=== PATIENT | female | born 1995 | race African-American/Black ===

== ENCOUNTER 2018-01-28 16:55 | Emergency (ER) | payer OTHER ==
[~2018-01-28] VITALS: Ht 162.6 cm; Wt 99.3 kg
[~2018-01-28 16:55] MED LIST: BUTO1CRE PV; METR1TAB76 PO; PREN1TAB53
--- NOTE | 2018-01-28 17:56 | PD ---
HPI Chief Complaint contractile pain Date Seen: Jan 28, 2018 Time Seen: 17:15 (Fransisco Babb MD R1) Travel History International Travel<30 Days: No Contact w/Intl Traveler<30Days: No Known Affected Area: No (Fransisco Babb MD R1) History of Present Illness HPI Ms Pk is a 22YO at 37/3 weeks who is followed by [facility] p/w contractile pain in her lower abdomen since early this afternoon. Pt feels like there are contractions approx every 15 minutes. There has been no leakage of fluid or bloody vaginal discharge. Pt was seen on Wednesday in d ketones in her urine. Pt is noted to have had positive screen for Trichomonas and felix on 09/27/17 treated and test of cure negative. STI testing at same time was negative for GC/ Chlamydia and BV. Pt also endorses GAUTAM x2 days, heartburn and some nausea. Denies V/D, constipation, fever, chills, CP, SOB, dizziness. Pt does indicate she has not had much PO fluid today. Weeks Gestation: 37 Para: 2 : 3 Miscarriage: 0 : 0 (Fransisco Babb MD R1) History Past Medical History Medical History: Denies Significant Hx (Fransisco Babb MD R1) Past Surgical History Surgical History: No Previous Surgery (Fransisco Babb MD R1) Family History Family History: Negative (Fransisco Babb MD R1) Social History Alcohol Use: No Tobacco Use: No Substance Abuse: No (Fransisco Babb MD R1) Allergies-Medications (Allergen,Severity, Reaction): Coded Allergies: amoxicillin (Verified Allergy, Unknown, rash, 09/27/17) Comments mild rash reported with amoxicillin (Fransisco Babb MD R1) Home Meds Reported Medications Vit-Ferrous Fumara ( Vitamin/Iron 28-0.8 mg) 28 Mg Iron-800 Mcg Tab 08/23/17 Discontinued Scripts Metronidazole (Metronidazole) 500 Mg Tab, 500 MG PO BID for Infection for 7 Days , #14 TAB 0 Refills Prov:Virginia Collado CNM [employer] 09/30/17 Butoconazole Nitrate (One Dose (Gynazole-1) 2 % Cre, 1 APPLIC PV ONCE, #1 APPL 0 Refills Prov:Tricia Mcclain [employer] 09/27/17 Narrative Medication Pt reports she finished both the Flagyl and Butoconazole treatment in September 2017 (Fransisco Babb MD R1) Review of Systems General / Constitutional: No: Fever, Chills Eyes: No: Visual changes HENT: Headaches (x2 days), No: Lightheadedness Cardiovascular: No: Chest Pain or Discomfort, Palpitations Respiratory: No: Cough, Short of Breath Gastrointestinal: Nausea, Abdominal Pain (lower), Indigestion (heartburn), No: Vomiting, Diarrhea, Constipation Genitourinary: Pelvic Pain, No: Dysuria, Hematuria, Discharge, Vaginal Bleeding Musculoskeletal: Pain (lower abdominal at times radiating to her back), No: Weakness, Cramping Skin: No Rash Neurologic: No: Weakness, Dizziness, Syncope (Fransisco Babb MD R1) Physical Exam BP 134/54 HR 94 Narrative GENERAL: Well-nourished, well-developed patient in NAD. SKIN: Warm and dry. No lesions or rashes. HEAD: Normocephalic and atraumatic. EYES: No scleral icterus. No injection or drainage. ENT: No nasal drainage noted. Mucous membranes pink. Airway patent. NECK: Supple, trachea midline. No JVD. CARDIOVASCULAR: Regular rate and rhythm without murmurs, gallops, or rubs. RESPIRATORY: Breath sounds equal bilaterally. No accessory muscle use. No increased WOB. ABDOMEN/GI: Abdomen soft, non-tender, bowel sounds present, no rebound, no guarding Gravid to 37 weeks size GENITOURINARY: External Genitalia: intact and normal in appearance Cervix: closed Dilatation: - Effacement: 50% Station: - Presentation: - Membranes: intact Uterine Contractions: absent FHT's: Category: 1 Baseline: 145-155 Reactive: yes Variability: moderate Decels: none EXTREMITIES: No cyanosis or edema. BACK: Nontender without obvious deformity. No CVA tenderness. NEUROLOGICAL: Awake and alert. Motor and sensory grossly within normal limits. Five out of 5 muscle strength in all muscle groups. Normal speech. (Fransisco Babb MD R1) Data Data Vital Signs Reviewed: Yes Orders Orders Urinalysis - C+S If Indicated (01/28/18 17:39) (Fransisco Babb MD R1) MDM Medical Record Reviewed: Yes Narrative Course / MDM 22YO at 37/3 weeks gestation followed by CFW p/w pelvic pain in the lower abdomen this afternoon. Cervix is closed, 50% and high. Cat 1 tracing with FHT baseline 150, moderate, reactive, no decels. DDx: dehydration vs round ligament pain vs UTI 1. Mehta IUP -Monitor and toco; reassuring FHTs -Encourage hydration -UA negative for infection; however, specific gravity 1.035 indicates dehydration -Pt encouraged to be more aggressive with hydration Pt seen with Dr Rosalind Rao and dw Dr Celeste (Fransisco Babb MD R1) Attending Attestation Patient seen and evaluated with resident under direct supervision, agree with assessment and plan. (Domingo Celeste MD) Diagnosis Diagnosis: Primary Impression: Antepartum dehydration Additional Impression: Round ligament pain Disposition: 01 DISCHARGE HOME Condition: Stable Fransisco Babb MD R1 Jan 28, 2018 17:56 Domingo Celeste MD Jan 28, 2018 21:42
[2018-01-28 18:08] LABS: BACTERIA, URINE OCC /hpf; BILIRUBIN, URINE NEG (NEG); BLOOD, URINE TRACE (NEG); CALCIUM OXALATE CRYSTALS,URINE MOD /hpf; GLUCOSE,URINE TRACE mg/dL (NEG); KETONE, URINE TRACE mg/dL (NEG); MUCUS URINE MANY /lpf (OCC); NITRITE,URINE NEG (NEG); SQUAMOUS EPITHELIAL CELL URINE 5 /hpf (0-5); URINE COLOR YELLOW (YELLW/STRAW); URINE LEUKOCYTE ESTERASE SMALL (NEG)
== END 2018-01-28 18:44 | disposition home or self-care (01) ==
LOC: HOBED 16:55
DX: O26.893 Other specified pregnancy related conditions, third trimester (principal); E86.0 Dehydration; R10.2 Pelvic and perineal pain; Z3A.37 37 weeks gestation of pregnancy; Z79.899 Other long term (current) drug therapy; Z88.0 Allergy status to penicillin
CPT/HCPCS: 59025; 81001

== ENCOUNTER 2018-02-04 21:55 | Emergency (ER) | payer OTHER ==
[~2018-02-04] VITALS: Ht 162.6 cm; Wt 101.2 kg
[~2018-02-04 21:55] MED LIST changes: -BUTO1CRE PV; -METR1TAB76 PO
--- NOTE | 2018-02-04 23:22 | PD ---
HPI Chief Complaint Contractions Date Seen: Feb 04, 2018 Time Seen: 23:15 Travel History International Travel<30 Days: No Contact w/Intl Traveler<30Days: No Known Affected Area: No History of Present Illness HPI Patient is 22-year-old black female at 38 weeks who [facility] and presents clinic contractions. Denies bleeding or leakage of fluid, heart rate tracing is reactive with rare contractions seen Weeks Gestation: 38 Para: 2 : 3 Last Menstrual Period: Feb 04, 2018 History Obstetric History Obstetric History 2 vaginal deliveries Social History Alcohol Use: No Tobacco Use: No Substance Abuse: No Allergies-Medications (Allergen,Severity, Reaction): Coded Allergies: amoxicillin (Verified Allergy, Unknown, rash, 02/04/18) Home Meds Reported Medications [None] No Conflict Check 02/04/18 Discontinued Scripts Metronidazole (Metronidazole) 500 Mg Tab, 500 MG PO BID for Infection for 7 Days , #14 TAB 0 Refills Prov:Virginia Collado CNM [facility] 09/30/17 Butoconazole Nitrate (One Dose (Gynazole-1) 2 % Cre, 1 APPLIC PV ONCE, #1 APPL 0 Refills Prov:Tricia Mcclain [facility] 09/27/17 Review of Systems General / Constitutional: No: Fever, Weight Gain, Chills, Other Eyes: No: Diploplia, Blurred Vision, Visual changes, Pain, Photophobia HENT: No: Headaches, Vertigo, Lightheadedness Cardiovascular: No: Irregular Rhythm, Chest Pain or Discomfort, Palpitations, Tachycardia, Syncope, Varicosities, Edema, Cyanosis Respiratory: No: Cough, Short of Breath, Other Gastrointestinal: Abdominal Pain, No: Nausea, Vomiting, Diarrhea Genitourinary: No: Decreased Urinary Output, Oliguria Musculoskeletal: No: Limited ROM, Weakness, Cramping, Edema, Pain Skin: No Rash, No Itching, No Dryness, No Lumps, No Change in Pigmentation, No Change in Nails, No Alopecia, No Lesions Neurologic: No: Weakness, Dizziness, Syncope, Focal Abnormalities, Coordination Problem, Headache, Slurred Speech, Seizures Psychiatric: No: Depression, Suicidal Ideations, Homicidal Ideation Endocrine: No: Heat Intolerance, Cold Intolerance, Polydipsia, Polyuria, Other Physical Exam Narrative GENERAL: Well-nourished, well-developed patient. SKIN: Warm and dry. HEAD: Normocephalic and atraumatic. EYES: No scleral icterus. No injection or drainage. ENT: No nasal drainage noted. Mucous membranes pink. Airway patent. NECK: Supple, trachea midline. No JVD. CARDIOVASCULAR: Regular rate and rhythm without murmurs, gallops, or rubs. RESPIRATORY: Breath sounds equal bilaterally. No accessory muscle use. BREASTS: Bilateral exam showed no masses , no retractions, no nipple discharge. ABDOMEN/GI: Abdomen soft, non-tender, bowel sounds present, no rebound, no guarding Gravid to [-38] weeks size Fundal Height: [-38] GENITOURINARY: External Genitalia: intact and normal in appearance BUS glands: [-] Cervix: [-post] Dilatation: [1-] Effacement: [50-] Station: [-3] Presentation: [vtx-] Membranes: [intact ] Uterine Contractions: [occasional-] FHT's: Category: [1-] Baseline: [133-] Reactive: [R-] Variability: [mod-] Decels: [none-] EXTREMITIES: No cyanosis or edema. BACK: Nontender without obvious deformity. No CVA tenderness. NEUROLOGICAL: Awake and alert. Motor and sensory grossly within normal limits. Five out of 5 muscle strength in all muscle groups. Normal speech. MDM Interpretation(s) Patient is 22-year-old white female at 38 weeks presents complaining of contractions, only occasional contractions seen on the monitor, cervix is 1/50/- 3, heart rate tracing is reactive Plan Plan to discharge home to bedrest, heating bag, Tylenol, increase p.o. fluids, return for increasing pain or regularity of contractions or she is leakage or bleeding Diagnosis Diagnosis: Primary Impression: False labor after 37 weeks of gestation without delivery Disposition: 01 DISCHARGE HOME Condition: Stable Patient Instructions: General Instructions Additional Instructions: RETURN TO ER FOR REGULAR CONTRACTIONS, BLEEDING, LEAKING OF FLUIDS, DECREASED MOVEMENT Departure Forms: Tests/Procedures Greg Cheung II, MD Feb 04, 2018 23:22
== END 2018-02-04 23:25 | disposition home or self-care (01) ==
LOC: HOBED 21:55
DX: O47.1 False labor at or after 37 completed weeks of gestation (principal); Z3A.38 38 weeks gestation of pregnancy
CPT/HCPCS: 59025

== ENCOUNTER 2018-02-16 10:20 | Inpatient (IN) | payer OTHER ==
[~2018-02-16] VITALS: Ht 162.6 cm; Wt 101.6 kg
--- NOTE | 2018-02-16 11:07 | PD ---
HPI Date Seen: Feb 16, 2018 Travel History International Travel<30 Days: No Contact w/Intl Traveler<30Days: No Known Affected Area: No History of Present Illness HPI The patient is a 22 year old at 40/1 weeks gestation [facility] by [facility] presents with possible ROM. She states around 07:00 this morning she noticed clear drainage of fluid. She was later on her toilet and noted more drainage at that time appearing cloudy. She denies contractions or any pain currently. Reports + movements. Denies vaginal bleeding. Patient is noted to have had positive screen for Trichomonas and felix on 09/27/17 treated and test of cure negative. STI testing at that same time was negative for GC/Chlamydia and BV. Para: 2 : 3 History Past Medical History Medical History: Denies Significant Hx Obstetric History Obstetric History Two prior vaginal deliveries Past Surgical History Surgical History: No Previous Surgery Family History Family History: Negative Social History Alcohol Use: No Tobacco Use: No Substance Abuse: No Allergies-Medications (Allergen,Severity, Reaction): Coded Allergies: amoxicillin (Verified Allergy, Unknown, rash, 02/04/18) Home Meds No Active Prescriptions or Reported Meds Review of Systems Except as stated in HPI: all other systems reviewed are Neg Physical Exam Narrative GENERAL: Well-nourished, well-developed patient. SKIN: Warm and dry. HEAD: Normocephalic and atraumatic. EYES: No scleral icterus. No injection or drainage. ENT: No nasal drainage noted. Mucous membranes pink. Airway patent. NECK: Supple, trachea midline. No JVD. CARDIOVASCULAR: Regular rate and rhythm without murmurs, gallops, or rubs. RESPIRATORY: Breath sounds equal bilaterally. No accessory muscle use. ABDOMEN/GI: Abdomen soft, non-tender, bowel sounds present, no rebound, no guarding Gravid to 40 weeks size GENITOURINARY: External Genitalia: intact and normal in appearance Cervix: posterior Dilatation: 1cm Effacement: thick Station: -3 Presentation: [-] Membranes: ruptured Uterine Contractions: none FHT's: Category: I Baseline: 130s Reactive: +accels Variability: moderate Decels: none noted EXTREMITIES: No cyanosis or edema. BACK: Nontender without obvious deformity. NEUROLOGICAL: Awake and alert. Motor and sensory grossly within normal limits. Normal speech. Data Data Vital Signs Reviewed: Yes Orders Orders Vital Signs (Adult) .ON ADMISSION (02/16/18 11:04) ^ Labor Status (02/16/18 11:04) ^ Non Stress Test (02/16/18 11:04) Group B Strep: Negative MDM Medical Record Reviewed: Yes Plan 22 year old at 40/1 weeks gestation [facility] presents s/ p SROM and being admitted to L&D. 1. IUP - s/p SROM, amnisure positive - Cervix: 1cm, thick, -3 station - Category I tracing - GBS negative - Will consider cervidil for cervical ripening - Continuous EFM dw Dr. Yi Scripts No Active Prescriptions or Reported Meds Arturo Mays MD R2 Feb 16, 2018 11:07
[2018-02-16 11:11] VITALS: BP 113/61; PULSE 98
[2018-02-16] MEDS ORDERED: LACTATED RINGER'S 1000 ML INJ 1,000 ML IV PRN (11:22)
[2018-02-16] MEDS ORDERED: LACTATED RINGER'S 1000 ML INJ 1,000 ML IV SCH (11:22)
[2018-02-16] MEDS ORDERED: LIDOCAINE HCL 1% 50 ML VIAL I-DERMAL PRN (11:30)
[2018-02-16] MEDS ORDERED: SODIUM CHLORID 0.9% 500 ML INJ 500 ML IV PRN (11:30)
[2018-02-16] MEDS ORDERED: MINERAL OIL 10 ML VIAL TOPICAL PRN (11:30)
[2018-02-16] MEDS ORDERED: OXYTOCIN 30 UNITS-500ML PREMIX 500 ML IV ONE (11:30)
[2018-02-16] MEDS ORDERED: CITRIC ACID-SODIUM CITRATE LIQ 30 ML UDC PO SCH (11:30)
[2018-02-16] MEDS ORDERED: LIDOCAINE HCL 1% 50 ML VIAL INFIL PRN (11:30)
[2018-02-16] MEDS ORDERED: SODIUM CHLOR 0.9% 1000 ML INJ 1,000 ML IV PRN (11:42)
[2018-02-16] MEDS ORDERED: no current meds (12:45)
[2018-02-16 13:28] LABS: AUTOMATED NEUTROPHIL # 5.7 TH/MM3 (1.8-7.7); BASOPHIL % 0.5 % (0.0-2.0); EOSINOPHIL % 0.5 % (0.0-4.0); HEMATOCRIT 31.6 % (35.0-46.0); HEMOGLOBIN 10.1 GM/DL (11.6-15.3); LYMPH % 17.9 % (9.0-44.0); LYMPHOCYTE # 1.4 TH/MM3 (1.0-4.8); MEAN CORPUSCULAR HEMOGLOBIN 20.8 PG (27.0-34.0); MEAN PLATELET VOLUME 8.6 FL (7.0-11.0); MONO % 7.1 % (0.0-8.0); MONOCYTE # 0.5 TH/MM3 (0-0.9); PLATELET COUNT 113 TH/MM3 (150-450); RED BLOOD COUNT 4.86 MIL/MM3 (4.00-5.30); RED CELL DISTRIBUTION WIDTH 18.9 % (11.6-17.2); WHITE BLOOD COUNT 7.7 TH/MM3 (4.0-11.0)
[2018-02-16 13:33] LABS: BACTERIA, URINE RARE /hpf; BILIRUBIN, URINE NEG (NEG); BLOOD, URINE SMALL (NEG); GLUCOSE,URINE NEG (NEG); KETONE, URINE NEG (NEG); MUCUS URINE FEW /lpf (OCC); NITRITE,URINE NEG (NEG); SQUAMOUS EPITHELIAL CELL URINE 4 /hpf (0-5); URINE COLOR LIGHT-YELLOW (YELLW/STRAW); URINE LEUKOCYTE ESTERASE MOD (NEG)
[2018-02-16 15:02] VITALS: RESP 16; TEMP 98
[2018-02-16 19:16] VITALS: BP 123/73; PULSE 87
[2018-02-16 19:17] VITALS: RESP 17; TEMP 98.3
[2018-02-16] MEDS ORDERED: SODIUM CHLOR 0.9% 1000 ML INJ 1,000 ML OTHER PRN (19:53)
[2018-02-16] MEDS ORDERED: MISOPROSTOL 25 MCG TAB VAGINAL ONE (20:00)
--- NOTE | 2018-02-16 20:49 | HHI.PR ---
Subjective Remarks [facility] Patient was previously seen by me and risks of , risks/indications for C/S were discussed. Patient without any progress since admission, discussed risks/ benefits/alternatives to cytotec. Cytotec 25 mcg placed. FHR reassuring. GBS negative. Objective Vital Signs Date Time Temp Pulse Resp B/P (MAP) Pulse Ox O2 Delivery O2 Flow Rate FiO2 02/16/18 19:17 98.3 17 02/16/18 19:16 87 123/73 (90) 02/16/18 15:02 98.0 16 02/16/18 11:11 98 113/61 (78) Result Diagram: 02/16/18 1215 Tricia Yi MD Feb 16, 2018 20:49
[2018-02-16] MEDS ORDERED: ZOLPIDEM TARTRATE 5 MG TAB PO PRN (22:45)
[2018-02-16 23:56] VITALS: TEMP 98.1
[2018-02-17] VITALS (14 sets, daily range): BP systolic 95–128; BP diastolic 52–78; PULSE 74–96; RESP 17–18; TEMP 98–98.9; O2SAT 98
[2018-02-17] MEDS ORDERED: MISOPROSTOL 25 MCG TAB VAGINAL PRN
[2018-02-17] MEDS ORDERED: fentaNYL 2MCG-BUPIV 0.125% INJ 100 ML ONE (05:28)
[2018-02-17] MEDS ORDERED: ePHEDrine/NS 25 MG/5 ML SYRINGE ONE (05:29)
[2018-02-17] MEDS ORDERED: OXYTOCIN 10 UNIT/ML AMP ONE (05:42)
[2018-02-17] MEDS ORDERED: OXYTOCIN 30 UNITS-500ML PREMIX 500 ML ONE (06:02)
--- NOTE | 2018-02-17 06:03 | PD.OB.DELI ---
Anesthesia: None Episiotomy: None Vaginal Delivery: Normal Presentation: Occiput anterior Nuchal Cord: None Delayed cord clamping (45 sec): Yes Infant: Male Delivery date: Feb 17, 2018 Delivery time: 05:40 One Minute : 8 Five Minute : 9 Weight: 8#7oz. Placenta: Manual removal Laceration: No lacerations Repair: Chromic running Estimated blood loss: 250 Tricia Yi MD Feb 17, 2018 06:03
--- NOTE | 2018-02-17 06:03 | HHI.PR ---
Subjective Remarks [facility] delivery note The patient rapidly progressed from 5 cm dilated to complete/complete/+2 and commenced spontaneous maternal expulsive efforts with reassuring heart tones throughout. THe patient rapidly expelled the head followed by spontaneous and atraumatic delivery of anterior shoulders and remainder of . The was vigorous at delivery and placed on the maternal abdomen. The cord was doubly clamped and cut. Cord blood was obtained for the nursery and the he cervix starting to close. The placenta appeared intact. Apgars 8/9. Weight 8#7oz. EBL 250cc. Mother and are both doing well. Objective Vital Signs Date Time Temp Pulse Resp B/P (MAP) Pulse Ox O2 Delivery O2 Flow Rate FiO2 02/17/18 05:51 90 117/65 (82) 02/17/18 02:11 74 115/53 (73) 02/17/18 01:53 98.0 02/16/18 23:56 98.1 02/16/18 19:17 98.3 17 02/16/18 19:16 87 123/73 (90) 02/16/18 15:02 98.0 16 02/16/18 11:11 98 113/61 (78) Result Diagram: 02/16/18 1215 Tricia Yi MD Feb 17, 2018 06:03
[2018-02-17] MEDS ORDERED: DOCUSATE SODIUM 50 MG/SENNA 8.6 MG TAB PO PRN (08:45)
[2018-02-17] MEDS ORDERED: ONDANSETRON ODT 4 MG TAB PO PRN (08:45)
[2018-02-17] MEDS ORDERED: SODIUM CHLORIDE 0.9% FLUSH 10 ML FLUSH IV FLUSH PRN (08:45)
[2018-02-17] MEDS ORDERED: OXYTOCIN 30 UNITS-500ML PREMIX 500 ML IV SCH (08:45)
[2018-02-17] MEDS ORDERED: ZOLPIDEM TARTRATE 5 MG TAB PO PRN (08:45)
[2018-02-17] MEDS ORDERED: WITCH HAZEL 50%/GLYCERIN 12.5% 40 PAD JAR TOPICAL PRN (08:45)
[2018-02-17] MEDS ORDERED: ALUMINUM/MAGNESIUM/SIMETH 30 ML CUP PO PRN (08:45)
[2018-02-17] MEDS ORDERED: BENZOCAINE 20% TOPICAL SPRAY 60 ML CAN TOPICAL PRN (08:45)
[2018-02-17] MEDS ORDERED: oxyCODONE/ACETAMINOPHEN 5 MG/325 MG TAB PO PRN ×2 (08:45)
[2018-02-17] MEDS ORDERED: SODIUM CHLORIDE 0.9% FLUSH 10 ML FLUSH IV FLUSH SCH (09:00)
[2018-02-17] MEDS: IBUPROFEN 800 MG TAB PO PRN ×2 (11:57→20:31)
[2018-02-17] MEDS ORDERED: MEASLES, MUMPS, RUBELLA VACCINE 0.5 ML VIAL SQ ONE (16:00)
[2018-02-17] MEDS ORDERED: DIPHTH/TETANUS/ACEL PERTUSSIS (BOOSTER) 0.5 ML VIAL/PFS IM ONE (16:00)
[2018-02-18 08:00] VITALS: BP 121/74; PULSE 65; RESP 20; TEMP 97.9; O2SAT 99
--- NOTE | 2018-02-18 08:35 | HHI.OB ---
Subjective Post Day: 1 Remarks Patient seen and examined this morning. AFVSS overnight. day #1. Patient states her pain is well controlled. Decreased lochia. Denies dysuria. No breast tenderness. She is feeding the baby via breast without reported issues. Appetite good. No nausea or vomiting. Ambulating well without issues. Denies fevers, calf pain, shortness of breath, or cough. She otherwise has no other complaints or concerns this morning. Objective Vitals/I&O Vital Signs Date Time Temp Pulse Resp B/P (MAP) Pulse Ox O2 Delivery O2 Flow Rate FiO2 02/18/18 08:00 97.9 65 20 121/74 (90) 99 02/17/18 20:00 98.1 79 18 111/67 (82) 98 Objective Remarks GENERAL: Well-nourished, well-developed patient. CARDIOVASCULAR: Regular rate and rhythm without murmurs, gallops, or rubs. RESPIRATORY: Breath sounds equal bilaterally. No accessory muscle use. ABDOMEN/GI: Abdomen soft, non-tender. Fundus: Firm, non-tender at umbilicus. GENITOURINARY: Light to moderate bleeding. EXTREMITIES: No cyanosis or edema, non-tender, without signs of DVT. Medications and IVs Current Medications Medications (Trade) Dose Ordered Sig/Kvng Route Start Time Stop Time Status Last Admin (Ambien) 5 mg HS PRN PO 02/16/18 22:45 02/16/18 22:34 (NS Flush) 2 ml BID IV FLUSH 02/17/18 09:00 (NS Flush) 2 ml UNSCH PRN IV FLUSH 02/17/18 08:45 (Tylenol) 650 mg Q4H PRN PO 02/17/18 08:45 (Motrin) 800 mg Q8H PRN PO 02/17/18 08:45 02/17/18 20:31 (Percocet 5-325 Mg) 1 tab Q4H PRN PO 02/17/18 08:45 (Percocet 5-325 Mg) 2 tab Q4H PRN PO 02/17/18 08:45 (Americaine 20% Top Spr) 1 spray Q4H PRN TOPICAL 02/17/18 08:45 02/17/18 20:31 (Tucks Pads) 1 applic QID PRN TOPICAL 02/17/18 08:45 02/17/18 20:31 (Fina-Colace) 2 tab Q12H PRN PO 02/17/18 08:45 (Ambien) 5 mg HS PRN PO 02/17/18 08:45 (Mag-Al Plus Susp Liq) 15 ml Q8H PRN PO 02/17/18 08:45 (Zofran Odt) 4 mg Q6H PRN PO 02/17/18 08:45 Assessment/Plan Problem List: (1) care following vaginal delivery ICD Codes: Z39.2 - Encounter for routine follow-up Assessment and Plan 22 year old now PPD#1. 1. Care - AFVSS - Encouraged OOB, as tolerated - Continue motrin prn pain - Advised pelvic rest x 6 weeks - without issues - Contraception: Discussed with patient this AM, patient desiring Mirena IUD - Instructed patient to f/u with OB provider within 6 weeks [facility] OB Hospitalist Arturo Mays MD R2 Feb 18, 2018 08:35
[2018-02-18] MEDS: ACETAMINOPHEN 325 MG TAB PO PRN ×2 (09:59→19:48)
[2018-02-18] MEDS: IBUPROFEN 800 MG TAB PO PRN ×2 (09:59→19:47)
[2018-02-18] MEDS ORDERED: IBUP1TAB7 PO (10:10)
[2018-02-18] MEDS ORDERED: PERI PO (10:10)
--- NOTE | 2018-02-18 10:11 | HHI.DCPOC ---
Discharge Care Plan Diagnosis: (1) care following vaginal delivery Report Symptoms to Your Doctor -Temperature above 100.5 degrees -Redness, of incision or excessive or foul smelling drainage -Unusual pain or calf pain -Increased vaginal bleeding -Painful or difficulty urinating -Feelings of extreme sadness or anxiety after 2 weeks Goals to Promote Your Health * To maintain your health at the optimal level, follow up with your OB provider within 6 weeks after hospital discharge. Directions to Meet Your Goals Take your medications as prescribed Follow your dietary instruction Follow activity as directed Ensure plenty of rest for recovery Drink fluids for hydration Keep your appointments as scheduled Take your immunizations and boosters as scheduled If your symptoms worsen call your PCP, if no PCP go to Urgent Care Center or Emergency Room Smoking is Dangerous to Your Health. Avoid second hand smoke Call the 24-hour crisis hotline for domestic abuse at Arturo Mays MD R2 Feb 18, 2018 10:11
[2018-02-19] MEDS: ACETAMINOPHEN 325 MG TAB PO PRN (04:19)
[2018-02-19] MEDS: IBUPROFEN 800 MG TAB PO PRN (04:19)
--- NOTE | 2018-02-19 08:21 | HHI.OB ---
Subjective Post Day: 2 Remarks Pt seen and examined this morning. day # 2 AFVSS overnight. Decreased lochia. Denies dysuria. No breast tenderness. She is feeding the baby via breast. Appetite good. No nausea or vomiting. Patient has not yet had a bowel movement, but does endorse bowel gas. Ambulating well. Denies calf pain or shortness of breath. Otherwise, she is doing well this morning and has no other concerns. (Jose Gomez MD R2) Remarks Patient seen and evaluated with resident under direct supervision, agree with assessment and plan. (Domingo Celeste MD) Objective Objective Remarks GENERAL: Well-nourished, well-developed patient. CARDIOVASCULAR: Regular rate and rhythm without murmurs, gallops, or rubs. RESPIRATORY: Breath sounds equal bilaterally. No accessory muscle use. ABDOMEN/GI: Abdomen soft, non-tender. Fundus: Firm, non-tender at umbilicus. GENITOURINARY: Light to moderate bleeding. EXTREMITIES: No cyanosis or edema, non-tender, without signs of DVT. Medications and IVs Current Medications Medications (Trade) Dose Ordered Sig/Kvng Route Start Time Stop Time Status Last Admin (Ambien) 5 mg HS PRN PO 02/16/18 22:45 02/16/18 22:34 (NS Flush) 2 ml BID IV FLUSH 02/17/18 09:00 (NS Flush) 2 ml UNSCH PRN IV FLUSH 02/17/18 08:45 (Tylenol) 650 mg Q4H PRN PO 02/17/18 08:45 02/19/18 04:19 (Motrin) 800 mg Q8H PRN PO 02/17/18 08:45 02/19/18 04:19 (Percocet 5-325 Mg) 1 tab Q4H PRN PO 02/17/18 08:45 (Percocet 5-325 Mg) 2 tab Q4H PRN PO 02/17/18 08:45 (Americaine 20% Top Spr) 1 spray Q4H PRN TOPICAL 02/17/18 08:45 02/17/18 20:31 (Tucks Pads) 1 applic QID PRN TOPICAL 02/17/18 08:45 02/17/18 20:31 (Fina-Colace) 2 tab Q12H PRN PO 02/17/18 08:45 (Ambien) 5 mg HS PRN PO 02/17/18 08:45 (Mag-Al Plus Susp Liq) 15 ml Q8H PRN PO 02/17/18 08:45 (Zofran Odt) 4 mg Q6H PRN PO 02/17/18 08:45 (Jose Gomez MD R2) Assessment/Plan Problem List: (1) care following vaginal delivery ICD Codes: Z39.2 - Encounter for routine follow-up Status: Acute Assessment and Plan 22 year old now PPD#2 1. Care - AFVSS - Encouraged OOB, as tolerated - Continue motrin prn pain - Advised pelvic rest x 6 weeks - without issues - Contraception: Discussed with patient this AM, patient desiring Mirena IUD - Instructed patient to f/u with OB provider within [address] Celeste (Jose Gomez MD R2) Jose Gomez MD R2 Feb 19, 2018 08:21 Domingo Celeste MD Feb 19, 2018 09:52
== END 2018-02-19 13:49 | disposition home or self-care (01) | DRG 775 ==
LOC: HOBED 10:20 → H2EA 11:22 → H1EA 02-17 07:55
PROVIDERS: ADMIT Obstetrics & Gynecology; ATTEND Obstetrics & Gynecology
PROC: 10E0XZZ Delivery of Products of Conception, External Approach (ICD-10-PCS; principal; 2018-02-17)
DX: O80 Encounter for full-term uncomplicated delivery (principal); Z23 Encounter for immunization; Z37.0 Single live birth; Z3A.40 40 weeks gestation of pregnancy
CPT/HCPCS: 80307; 81001; 84112; 85025; 86900; 86901; 99283; G0481; J2590; J3010